=== PATIENT | male | born 1970 | race Caucasian/White ===

== ENCOUNTER → 2020-09-29 | Outpatient (CLI) | payer BC | END | disposition home or self-care (01) | LOC: COVID19 08:10 | PROVIDERS: ATTEND Surgery | DX: Z20.822 Contact with and (suspected) exposure to COVID-19 (principal) ==

== ENCOUNTER → 2020-10-02 | Day surgery (SDC) | payer BC ==
[~2020-10-02] VITALS: Ht 182.8 cm; Wt 108.9 kg
[2020-10-02 06:30] VITALS: BP 143/90
[2020-10-02 07:48] VITALS: BP 106/65
[2020-10-02 08:04] VITALS: BP 108/64
[2020-10-02 08:16] VITALS: BP 122/61
== END | disposition home or self-care (01) ==
LOC: SDC 09-28 08:00
PROVIDERS: ATTEND Surgery
DX: Z12.11 Encounter for screening for malignant neoplasm of colon (principal)

== ENCOUNTER → 2025-02-10 | Outpatient (CLI) | payer BC | LOC: RAD 08:18 | PROVIDERS: ATTEND Family Medicine | DX: M25.562 Pain in left knee (principal) ==

== ENCOUNTER → 2025-06-06 | Outpatient (CLI) | payer BC | END | disposition home or self-care (01) | LOC: MRI 06-03 08:00 | PROVIDERS: ATTEND Family Medicine | DX: M17.12 Unilateral primary osteoarthritis, left knee (principal); M25.562 Pain in left knee ==